=== PATIENT | female | born 1955 | race Caucasian/White ===

== ENCOUNTER 2022-12-05 14:43 | Emergency (ER) | payer MEDICARE, BC ==
[~2022-12-05] VITALS: Ht 165.1 cm; Wt 56.6 kg
[2022-12-05 16:19] LABS: ALANINE AMINOTRANSFERASE 32 U/L (12-78); ALBUMIN 3.9 G/DL (3.4-5.0); ALBUMIN/GLOBULIN RATIO 1.1 (1.1-1.5); ALKALINE PHOSPHATASE 55 IU/L (46-116); ANION GAP 7 (8-16); ASPARTATE AMINO TRANSFERASE 22 U/L (10-37); BILIRUBIN,TOTAL 0.4 MG/DL (0.1-1.0); BLOOD UREA NITROGEN 10 MG/DL (7-18); BUN/CREATININE RATIO 14.7 (10.0-20.0); CALCIUM 9.2 MG/DL (8.5-10.1); CHLORIDE 100 MMOL/L (99-107); CREATININE 0.68 MG/DL (0.40-0.90); GLUCOSE 103 MG/DL (70-104); POTASSIUM 3.9 MMOL/L (3.5-5.1); SODIUM 137 MMOL/L (135-145); TOTAL CARBON DIOXIDE 29.8 MMOL/L (24-32); TOTAL PROTEIN 7.3 G/DL (6.4-8.2); eCRCL 70 ML/MIN; eGFR 86 ML/MIN
[2022-12-05 16:27] LABS: PRO BRAIN NATRIURETIC PEPTIDE 147 PG/ML (0-125)
[2022-12-05 16:39] LABS: BASOPHILS % (AUTO) 0.5 % (0-1); EOSINOPHILS % (AUTO) 0.2 % (0-6); HEMATOCRIT 44.4 % (35.0-45.0); HEMOGLOBIN 14.8 g/dl (12.0-16.0); LYMPHOCYTES # (AUTO) 1.3 X10'3 (1.1-4.8); LYMPHOCYTES % (AUTO) 16.4 % (21-51); MEAN CORPUSCULAR HEMOGLOBIN 32.6 PG (27.0-31.0); MEAN CORPUSCULAR HGB CONC 33.4 g/dL (33.0-36.5); MEAN CORPUSCULAR VOLUME 97.5 FL (78-98); MONOCYTES # (AUTO) 0.5 X10'3 (0-0.9); MONOCYTES % (AUTO) 6.4 % (2-12); NEUTROPHILS # (AUTO) 6.1 X10'3 (1.8-7.7); NEUTROPHILS % (AUTO) 76.5 % (42-75); PLATELET COUNT 233 X10'3 (140-440); RED BLOOD COUNT 4.56 X10'6 (4.20-5.60); RED CELL DISTRIBUTION WIDTH 12.9 % (11.5-14.5)
[2022-12-05] MEDS ORDERED: mag hydrox/Alum hydrox/simeth 30ml oral suspension PO ONE (19:50)
[2022-12-05] MEDS ORDERED: LIDOcaine Viscous 15ml cup MM ONE (19:50)
[2022-12-05 19:52] VITALS: TEMP 97.3
[2022-12-05] MEDS ORDERED: ondansetron/PF 4mg/2ml inj IV ONE (19:55)
[2022-12-05] MEDS ORDERED: normal saline 1000ml 1,000 ML IV ONE (19:55)
[2022-12-05] MEDS ORDERED: ketorolac trometh. 30mg/ml inj. IV ONE (19:55)
--- NOTE | 2022-12-05 20:15 | NUR ---
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
[2022-12-05] MEDS ORDERED: iohexol 300mg/ml 100ml inj. ONE (20:32)
[2022-12-05 20:40] LABS: BILIRUBIN,URINE NEGATIVE (Neg); CLARITY,URINE CLEAR (Clear); COLOR,URINE YELLOW (Yellow); GLUCOSE, URINE NEGATIVE (Neg); KETONES,URINE TRACE mg/dl (Neg); LEUKOCYTE ESTERASE ,URINE NEGATIVE (Neg); NITRITES, URINE NEGATIVE (Neg); OCCULT BLOOD,URINE SMALL (Neg); PROTEIN,URINE NEGATIVE (Neg); UROBILINOGEN,URINE 0.2 E.U/dL (0.2-1.0)
[2022-12-05 20:46] LABS: UA COLLECTION TYPE CLN CATCH MIDSTREAM
[2022-12-05 20:47] LABS: BACTERIA,URINE NONE SEEN /HPF (Neg); RBC,URINE 0-2 /HPF (0-2); SQUAMOUS EPITHELIAL CELL,UR FEW /LPF (FEW); WBC,URINE 0-4 /HPF (0-4)
[2022-12-05 21:39] LABS: LIPASE 84 U/L (73-393)
[2022-12-05] MEDS ORDERED: ONDA4TAB12 PO (21:43)
[2022-12-05] MEDS ORDERED: OMEP40CA21 PO (21:43)
[2022-12-05 22:06] VITALS: BP 147/86; PULSE 89; RESP 16; O2SAT 98
== END 2022-12-05 22:10 | disposition home or self-care (01) ==
LOC: ER 14:45
DX: R11.0 Nausea (principal); R10.11 Right upper quadrant pain; E03.9 Hypothyroidism, unspecified; Z88.0 Allergy status to penicillin; Z79.899 Other long term (current) drug therapy; Z90.710 Acquired absence of both cervix and uterus
CPT/HCPCS: 36415; 71045; 74177; 76700; 80053; 81001; 83690; 83880; 84145; 84484; 85025; 93005; 96361; 96374; 96375; 99285; J1885; J2405; J3490; J7030; Q9967